=== PATIENT | female | born 1955 | race Caucasian/White ===

== ENCOUNTER 2020-01-12 13:51 | Outpatient (CLI) | payer MEDICARE, SELFPAY ==
--- NOTE | ~2020-01-12 | CT_ITS ---
EXAMINATION: CT pelvis w con EXAM DATE: 01/12/2020 14:33 INDICATION: Bilateral hip pain. TECHNIQUE: Spiral CT pelvis w con was performed without contrast. Axial, coronal and sagittal image s were reviewed. The dose-length product (DLP) for this examination was 782.51 mGy-cm. The exposure was tailored according to patient size (auto mA exposure control), and iterative reconstruction (ASI R) was used as additional dose reduction technique. There is no prior study for comparison. FINDINGS: Dense metallic artifact from bilateral hip replacements. The hardware is in position. There is no periprosthetic lucency. Please note that the tips of the femoral stems were not imaged. There is mild to moderate bilateral sacroiliac osteoarthritis. Lower lumbar fusion incompletely imaged, wit h posterior hardware and interbody devices L4-S1, and L5 laminectomies. Sacrum is unremarkable. Proba ble hysterectomy. No pelvic lymphadenopathy. There is mild sigmoid colonic diverticulosis. There is no adjacent inflammatory change to suggest diverticulitis. IMPRESSION: 1. Unremarkable bilateral hip arthroplasties and lumbar fusion hardware. 2. Colonic diverticulosis. Reviewed, dictated and finalized at location A.
[2020-01-12 14:18] LABS: Estimated Glomerular Filt Rate > 60
== END 2020-01-12 13:52 | disposition home or self-care (01) ==
PROVIDERS: Visit Provider Internal Medicine
DX: M25.551 Pain in right hip (principal); M25.552 Pain in left hip; K57.30 Diverticulosis of large intestine without perforation or abscess without bleeding; Z98.1 Arthrodesis status
CPT/HCPCS: 36415; 72193; Q9967

== ENCOUNTER 2021-04-21 12:58 | Outpatient (CLI) | payer MEDICARE, SELFPAY ==
--- NOTE | ~2021-04-21 | MR_ITS ---
EXAMINATION: MR lumbar spine wo/w con DATE: 04/21/2021 13:53 INDICATION: Lumbar stenosis. TECHNIQUE: Magnetic resonance imaging (MRI) of the lumbar spine was performed without and with 17 mL MultiHance intravenous contrast. Sequences included sagittal T2-weighted FSE, sagittal T2-weighted FS FSE, and sagittal and axial T1-weighted FSE. Postcontrast sequences included axial T2-weighted FSE a nd axial and sagittal T1-weighted FS FSE. COMPARISON: Pelvis CT 01/12/2020 FINDINGS: There is 4 degrees dextrocurvature of lumbar spine. There is 3 mm retrolisthesis of L1 on L 2 and L2 on L3, 4 mm anterolisthesis of L3 on L4, and 6 mm anterolisthesis of L4 on L5. There are trace nges of anterior and posterior fusion procedures from L4 to S1 with interbody devices and pedicle scr ews. There is moderately decreased disc height at T12-L1, severely decreased disc height at L1-L2, an d moderately decreased disc height at L2-L3 and L3-L4 with endplate remodeling. The distal spinal cor d signal intensity is normal. The conus medullaris is at L2. There is crossed fused ectopy of the kid neys on the right. There are cysts in right kidney measuring up to 4.0 cm. The following disc levels are specifically discussed: T12-L1: The disc is bulging with superimposed left subarticular zone extrusion. There is moderate carmela ateral facet joint osteoarthritis. There is mild bilateral neural foraminal stenosis. There is mild c entral canal stenosis. L1-L2: The disc is bulging. There is severe bilateral facet joint osteoarthritis. There is moderate b ilateral neural foraminal stenosis. There is mild central canal stenosis. L2-L3: The disc is bulging with superimposed left central extrusion. There is severe bilateral facet joint osteoarthritis. There is moderate right and severe left neural foraminal stenosis. There is mod erate central canal stenosis. L3-L4: The disc is bulging with superimposed right central extrusion. There is severe bilateral facet joint osteoarthritis. There is severe right and moderate left neural foraminal stenosis. There is mo derate central canal stenosis. L4-L5: There is severe bilateral facet joint hypertrophy. There is mild right and moderate left neura l foraminal stenosis. There is mild central canal stenosis with posterior decompression. L5-S1: There is moderate bilateral facet joint hypertrophy. There is mild bilateral neural foraminal stenosis. There is mild central canal stenosis with posterior decompression. IMPRESSION: 1. Severe lumbar spondylosis. 2. Anterior and posterior fusion procedures from L4 to S1. Reviewed, dictated and finalized at location A.
[2021-04-21 13:25] LABS: Estimated Glomerular Filt Rate > 60
== END 2021-04-21 12:59 | disposition home or self-care (01) ==
LOC: ANHIMG 13:01
PROVIDERS: PCP Internal Medicine
DX: M47.816 Spondylosis without myelopathy or radiculopathy, lumbar region (principal); Z98.1 Arthrodesis status; Z78.0 Asymptomatic menopausal state
CPT/HCPCS: 72158; A9577

== ENCOUNTER 2022-07-19 13:04 | Outpatient (CLI) | payer MEDICARE, SELFPAY ==
--- NOTE | ~2022-07-19 | XR_ITS ---
XR lumbar spine 2-3V DATE: 07/19/2022 13:30 INDICATION: Low back pain TECHNIQUE: Standing AP, lateral views COMPARISON: 04/21/2021 MRI lumbar spine FINDINGS: Status post lumbar laminectomy. There pedicle screws and rods bilaterally from L2 to S1, wi th interbody spinal fusion at L4-5 and L5-S1. There is prominent degenerative disc disease in the lower thoracic spine at L1-2 and L2-3, moderately prominent degenerative disc disease at L3-4. Approximately 4.3 mm anterolisthesis at L3-4. Approximately 6 mm anterolisthesis at L4-5. No fracture or bone destruction is evident. The sacroiliac joints are intact. Status post bilateral total hip arthroplasty. IMPRESSION: Status post laminectomy, posterior surgical fusion at L2-S1 and interbody spinal fusion a t L4-5 and L5-S1 Cirrhosis bilateral total hip arthroplasty Reviewed, dictated and finalized at location B. R SALES ASSOCIATE IMPRESSION: Status post laminectomy, posterior surgical fusion at L2-S1 and int erbody spinal fusion at L4-5 and L5-S1 Cirrhosis bilateral total hip arthroplasty
== END 2022-07-19 13:05 | disposition home or self-care (01) ==
LOC: ANHIMG 13:08
PROVIDERS: Visit Provider Neurological Surgery
DX: M54.50 Low back pain, unspecified (principal); Z98.1 Arthrodesis status
CPT/HCPCS: 72100

== ENCOUNTER 2022-11-06 12:24 | Emergency (ER) | payer MEDICARE, SELFPAY ==
--- NOTE | ~2022-11-06 | CT_ITS ---
EXAMINATION: CT abdomen pelvis wo con DATE: 11/06/2022 18:17 INDICATION: Lower abdominal pain, recent colonoscopy TECHNIQUE: Computed tomography (CT) of the abdomen and pelvis was performed without intravenous contr ast. The dose-length product (DLP) was 912.03 mGy-cm. Automated exposure control and iterative recons truction technique were employed. COMPARISON: 01/12/2020 FINDINGS: Minimal dependent atelectasis is present in the lung bases. The heart size is normal. There is a trace right pleural effusion. The liver, spleen, pancreas, gallbladder, and right adrenal gland are normal. There is thickening of the left adrenal gland which maintains its adreniform shape. Cyst s of the right kidney measure up to 3.5 cm. The left kidney is absent. Colonic diverticulosis is pres ent without evidence of diverticulitis. No pathologically enlarged abdominal or pelvic lymph nodes ar e identified. No free intraperitoneal gas or evidence of bowel obstruction. There are bilateral hip a rthroplasties. Changes of anterior and posterior fusion procedure are noted in the lumbar spine. Ther e is severe lower thoracic spondylosis. IMPRESSION: 1. No CT correlate for the patient's symptoms. Reviewed, dictated and finalized at location F.
[2022-11-06 12:29] VITALS: BP 121/72; PULSE 61; RESP 20; TEMP 36.7; O2SAT 100
[2022-11-06 12:49] LABS: Basophils Percent Auto 0.5 % (0.2-1.2); Eosinophils Percent Auto 0.5 % (0-4.4); Hematocrit 37.8 % (37.0-47.0); Hemoglobin 13.1 g/dL (12.0-15.0); Immature Granulocyte Absolute 0.04 K/mm3 (0.00-0.031); Immature Granulocyte Percent A 0.5 % (0-0.5); Lymphocytes Absolute Auto 1.14 K/mm3 (0.9-3.2); Mean Corpuscular HGB Conc 34.7 g/dl (32-36); Mean Corpuscular Hemoglobin 32.6 pg (26-34); Mean Platelet Volume 8.5 fl (7.4-10.4); Monocytes Absolute Auto 0.9 K/mm3 (0.1-0.6); Monocytes Percent Auto 10.3 % (2.6-8.5); Neutrophils Absolute Auto 6.6 K/mm3 (1.3-6.7); Neutrophils Percent Auto 75.2 % (45.5-73.1); Platelet Count Result 319 k/mm3 (150-375); Red Blood Count 4.02 M/mm3 (4.2-5.4); Red Cell Distribution Width 13.8 % (11.5-14.5); White Blood Count 8.8 K/mm3 (4.5-10.0)
[2022-11-06 13:02] LABS: Alanine Aminotransferase 19 U/L (6-35); Albumin Level 4.1 g/dL (3.5-5.1); Alkaline Phosphatase 97 U/L (38-126); Anion Gap 9 mmol/L (8-16); Aspartate Amino Transferase 27 U/L (14-36); Blood Urea Nitrogen 16 mg/dL (7-17); Calcium 9.4 mg/dL (8.4-10.2); Carbon Dioxide 25 mmol/L (22-30); Chloride 101 mmol/L (98-107); Estimated CRCL calculation 54 ml/min; Estimated Glomerular Filt Rate > 60; Glucose 107 mg/dL (65-110); Lipase 30 U/L (23-300); Sodium 135 mmol/L (137-145)
[2022-11-06 16:25] LABS: Appearance Urine Cloudy (Clear); Bacteria Urine Rare /hpf; Bilirubin Urine Negative (Negative); Blood Urine 1+ (Negative); Color Urine Dark Yellow (Yellow); Glucose Urine UA Negative (Negative); Ketones Urine 2+ mg/dL (Negative); Leukocyte Esterase Ur Negative LEU/UL (Negative); Mucus Urine Present /lpf; Need Manual Microscopic Reviewed; Nitrate Urine Negative (Negative); Non Pathogenic Casts >20; Protein Urine 1+ mg/dL (Negative); Specific Grav Ur 1.028 (1.001-1.035); Squamous Epithelial Cell Urine Many /hpf (Few); WBC Urine 0-5 /hpf; pH Urine 5.5 (5.0-9.0)
[2022-11-06 16:28] LABS: Add Urine Microscopic? YES
[2022-11-06 16:47] VITALS: BP 110/67; PULSE 82; RESP 18; O2SAT 100
[2022-11-06] MEDS: SODIUM CHLORIDE 0.9% IV 1,000 ML 999 ML IV CONT (18:05)
--- NOTE | 2022-11-06 18:08 | ED.GENADULT ---
HPI - General Adult General Chief complaint: Abdominal Pain Stated complaint: Back pain Time Seen by Provider: 11/06/22 17:52 Source: RN notes reviewed History of Present Illness HPI narrative: Patient presents emergency department from home for abdominal pain. Patient states that she had a colonoscopy approximately 6 days ago at [facility]. States she is feeling fine for the day following but then 1 day following she began to have abdominal pain described as cramping states that this continued and was associated with several episodes of nausea and vomiting then on and Sunday. She states that she no longer has had nausea vomiting but states that she has not had a bowel movement now in the past 4 days states she still has pain in the lower abdomen described as cramping in nature. She denies any fevers or chills chest pain shortness of breath or any other symptoms. States she has not taken anything for the pain Related Data Home Medications Medication Instructions Recorded Confirmed albuterol sulfate 90 mcg/actuation 2 puff inhalation Q4H PRN 07/22/19 07/19/22 aerosol inhaler (ProAir HFA) benazepril 5 mg tablet 5 mg PO DAILY 07/22/19 07/19/22 bupropion HCl [Wellbutrin XL] PO 07/22/19 07/19/22 diclofenac sodium 1 % topical gel 2 gm topical QID 07/22/19 07/19/22 (Voltaren) montelukast 10 mg tablet 10 mg PO DAILY 07/22/19 07/19/22 (Singulair) tiotropium bromide 2.5 2 inhalation inhalation QAM 07/22/19 07/19/22 mcg/actuation mist for inhalation (Spiriva Respimat) tramadol 50 mg tablet 50 mg PO Q6H PRN 07/22/19 07/19/22 pravastatin 10 mg tablet 10 mg PO DAILY 09/07/21 07/19/22 upadacitinib 15 mg tablet,extended 15 mg PO DAILY 07/19/22 07/19/22 release 24 hr (Rinvoq) Allergies Allergy/AdvReac Type Severity Reaction Status Date / Time cephalexin Allergy Unknown Pruritic Verified 11/06/22 17:58 rash Penicillins Allergy Unknown Urticaria Verified 11/06/22 17:58 CEPHALEXIN MONOHYDRATE Allergy Unknown rash Uncoded 11/06/22 17:58 Review of Systems Review of Systems: Gen.: Denies fevers or chills ENT: Denies congestion Respiratory: Denies shortness of breath or cough CV: Denies chest pain or palpitations GI: See HPI denies burning, urgency, frequency or hematuria Musculoskeletal: Denies back pain or muscle pain Neuro: Denies numbness, tingling, weakness or focal weakness Skin: Denies rash Except as documented, all other systems reviewed and negative PMFSH Past Medical History Medical History Adhesive capsulitis of left shoulder (~2018) Allergies Arthritis Asthma COPD (chronic obstructive pulmonary disease) Degenerative joint disease of cervical and lumbar spine Hip pain, bilateral HTN (hypertension) 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 Lumbar stenosis Rheumatoid arthritis with rheumatoid factor of multiple sites without organ or systems involvement (~2016) Subacromial bursitis of right shoulder joint Surgical History Surgical History H/O: hysterectomy Family History Family History Mother Family history of gout Family history of rheumatoid arthritis Patient's mother is in good health Father Patient's father is , Onset Age: 71 Grandparent Family history of malignant neoplasm, Onset Age: 82 Family history of coronary artery disease Social History Social History Smoking status: Never smoker Alcohol intake: current Exam Narrative: APPEARANCE: No acute distress, nontoxic, resting in bed HEENT: Normocephalic, atraumatic, OMM RESPIRATORY: No respiratory distress, clear to auscultation bilaterally with no rhonchi wheezing or rales CARDIOVASCULAR: RRR s murmur ABDOMINAL: Soft nondist
[2022-11-06 18:28] VITALS: BP 119/96; PULSE 77; RESP 18; O2SAT 100
[2022-11-06] MEDS: POTASSIUM CHLORIDE 20 MEQ PACKET (FOR LIQUID) 40 MEQ PO (19:40)
[2022-11-06 20:02] VITALS: BP 139/85; PULSE 80; RESP 17; O2SAT 97
== END 2022-11-06 20:06 | disposition home or self-care (01) ==
PROVIDERS: Emergency Medicine; Emergency Provider Emergency Medicine
DX: R10.30 Lower abdominal pain, unspecified (principal); E87.6 Hypokalemia; Z98.890 Other specified postprocedural states; J44.9 Chronic obstructive pulmonary disease, unspecified; I10 Essential (primary) hypertension; M05.79 Rheumatoid arthritis with rheumatoid factor of multiple sites without organ or systems involvement; M19.90 Unspecified osteoarthritis, unspecified site; Z90.710 Acquired absence of both cervix and uterus
CPT/HCPCS: 36415; 74176; 80053; 81001; 83690; 85025; 96361; 96365; 99284; A9270; J0131; J7030

== ENCOUNTER 2023-08-14 13:14 | Emergency (ER) | payer MEDICARE, SELFPAY ==
--- NOTE | ~2023-08-14 | XR_ITS ---
EXAMINATION: XR knee RT min 4V DATE: 08/14/2023 13:44 INDICATION: Right knee pain with walking and weightbearing TECHNIQUE: Anteroposterior, 2 oblique and crosstable lateral views of the right knee were obtained COMPARISON: None. FINDINGS: Alignment is normal. No fracture. Tricompartmental osteoarthritis at the right knee characterized by nonuniform joint space narrowing and moderate to large marginal osteophytes in all 3 compartments. Th e joint space narrowing is moderate to severe in the lateral compartment and at least moderate severi ty in the patellofemoral and mild in the medial compartments although joint space narrowing can be un derestimated on nonweightbearing imaging. Moderate-sized right knee joint effusion without layering l ipohemarthrosis. Soft tissues are otherwise unremarkable. IMPRESSION: 1. Moderate to severe tricompartmental osteoarthritis at the right knee with moderate-sized knee join t effusion. Reviewed, dictated and finalized at location A. K WRITER SALESPERSON IMPRESSION: 1. Moderate to severe tricompartmental osteoarthritis at the right knee with mo derate-sized knee joint effusion.
[2023-08-14 13:26] VITALS: BP 133/79; PULSE 51; RESP 18; TEMP 36.3; O2SAT 99
--- NOTE | 2023-08-14 14:09 | ED.LOWEXIN ---
HPI - Extremity Injury (Lower) General Chief Complaint: Extremity Injury, Lower Stated Complaint: Fall Injury/Right Knee/Right Hip Time Seen by Provider: 08/14/23 14:09 Source: patient, RN notes reviewed and old records reviewed Mode of arrival: ambulatory Limitations: no limitations History of Present Illness HPI Narrative: 68-year-old female who presents to [facility] with complaints of fall which occurred on when she slipped in her kitchen and fell onto kitchen floor onto her buttock with right leg turned outward and left leg straight. patient reports that she has pain to her right knee and it has made it increasingly difficult to ambulate. She has been using her walker and using compression sleeve to her right knee. Patient states some pain to lower back radiating down right leg refuses x-ray of back has had previous spinal surgery, states no acut pain to right hip has had total hip replacement refuses x-ray to right hip. Patient has history of Rheumatoid arthritis MD complaint: knee injury and fall Onset (ago): day(s) (8) Injury: Right: knee Type of Injury: other (fall from standing) Place: home Severity scale (1-10): 5 Exacerbating factors: weight bearing Associated symptoms: swelling Treatments prior to arrival: other (Tylenol and Ibuprofen) Related Data Home Medications Medication Instructions Recorded Confirmed montelukast 10 mg tablet 10 mg PO DAILY 07/22/19 08/14/23 (Singulair) pravastatin 10 mg tablet 10 mg PO DAILY 09/07/21 08/14/23 upadacitinib 15 mg tablet,extended 15 mg PO DAILY 07/19/22 08/14/23 release 24 hr (Rinvoq) fluticasone fur. 200 mcg-umeclid 1 inh inhalation DAILY 08/14/23 08/14/23 62.5 mcg-vilant 25 mcg inhalat.powder (Trelegy Ellipta) fluticasone propionate 50 See Rx Instructions .Route .COMPLEX 08/14/23 08/14/23 mcg/actuation nasal spray,suspension leflunomide 20 mg tablet 20 mg PO DAILY 08/14/23 08/14/23 prednisone 2.5 mg tablet 2.5 mg PO DAILY 08/14/23 08/14/23 tizanidine 2 mg capsule 2 mg PO Q8H PRN pain 08/14/23 08/14/23 Allergies Allergy/AdvReac Type Severity Reaction Status Date / Time cephalexin Allergy Unknown Pruritic Verified 08/14/23 13:45 rash Penicillins Allergy Unknown Urticaria Verified 08/14/23 13:45 CEPHALEXIN MONOHYDRATE Allergy Unknown rash Uncoded 08/14/23 13:45 Review of Systems Review of Systems: CONSTITUTIONAL: Denies fever, chills, or sweats. EYES: Denies visual changes, redness, or discharge. ENT: Denies rhinorrhea, congestion, sore throat, or otalgia. CARDIOVASCULAR: Denies chest pain, palpitations, or edema. RESPIRATORY: Denies cough or dyspnea. GASTROINTESTINAL: Denies abdominal pain, nausea, vomiting, or diarrhea. GENITOURINARY: Denies dysuria or hematuria. SKIN: Denies rash or itching. MUSCULOSKELETAL: report back pain right sciatica, right knee pain, or myalgia. NEUROLOGIC: Denies headache, numbness, or weakness. PSYCHIATRIC: Positive for history of aniety or depression. 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
== END 2023-08-14 14:35 | disposition home or self-care (01) ==
PROVIDERS: Emergency Provider Registered Nurse
DX: M17.11 Unilateral primary osteoarthritis, right knee (principal); M25.461 Effusion, right knee; M54.31 Sciatica, right side; J44.9 Chronic obstructive pulmonary disease, unspecified; I10 Essential (primary) hypertension; F17.210 Nicotine dependence, cigarettes, uncomplicated; Z79.899 Other long term (current) drug therapy
CPT/HCPCS: 73562; 73564; 99213; G0463